=== PATIENT | male | born 1950 | race Caucasian/White ===

== ENCOUNTER 2020-12-24 16:50 | Emergency (ER) | payer MEDICARE, OTHER ==
[~2020-12-24] VITALS: Ht 167.6 cm; Wt 68.0 kg
--- NOTE | 2020-12-24 17:55 | NUR ---
DR GARCIA AT BEDSIDE FOR EVAL.
[2020-12-24] MEDS ORDERED: ALBUTEROL FS 2.5 MG/3 ML VIAL.NEB CONTNEB ONE (18:00)
[2020-12-24] MEDS ORDERED: methylPREDNISolone SOD SUCC 125 MG/2ML VIAL IV ONE (18:00)
[2020-12-24] MEDS ORDERED: IPRATROPIUM NEB FS 0.5 MG/2.5 ML AMPUL.NEB NEB ONE (18:00)
[2020-12-24] MEDS ORDERED: methylPREDNISolone SOD SUCC 125 MG/2ML VIAL ONE (18:04)
[2020-12-24] MEDS ORDERED: IPRATROPIUM NEB FS 0.5 MG/2.5 ML AMPUL.NEB ONE (18:06)
[2020-12-24] MEDS ORDERED: ALBUTEROL FS 2.5 MG/3 ML VIAL.NEB ONE (18:06)
--- NOTE | 2020-12-24 18:10 | NUR ---
RT AT BEDSIDE FOR BREATHING TREATMENT.
--- NOTE | 2020-12-24 18:19 | NUR ---
BIBRA60 FRM USP C/O SOB, +WHEEZING X 1 HOUR. RAN OUT OUT ASTHMA MEDS WAS GIVEN ALBUTEROL TREATMENT MANAGEMENT ENGINEER. PT AAOX4, DENIES CP, DIZZINESS, N/V AT THIS TIME. PT SEEN & EVAL'D BY DR. GARCIA. MEDICATED ORDERED, PT LIAM WELL. WILL CONT TO MONITOR.
[2020-12-24 18:21] LABS: BASOPHILS % (AUTO) 0.5 % (0.0-2.0); EOSINOPHILS % (AUTO) 12.2 % (0.0-6.0); HEMATOCRIT 34 % (39-51); HEMOGLOBIN 11.5 g/dL (13.5-17.5); LYMPHOCYTES # (AUTO) 1.7 K/uL (0.8-4.8); LYMPHOCYTES % (AUTO) 30.8 % (20.0-44.0); MEAN CORPUSCULAR HGB CONC 34 g/dl (31.0-36.0); MEAN CORPUSCULAR VOLUME 83 fL (80-96); MONOCYTES # (AUTO) 0.6 K/uL (0.1-1.30); NEUTROPHILS # (AUTO) 2.5 K/uL (1.8-8.9); NEUTROPHILS % (AUTO) 46.5 % (43.0-81.0); PLATELET COUNT (AUTO) 208 K/uL (150-450); RED BLOOD CELL COUNT(AUTO) 4.13 MIL/uL (4.5-6.0); WHITE BLOOD COUNT (AUTO) 5.5 K/uL (4.3-11.0)
[2020-12-24 18:31] LABS: CALCIUM, SERUM 8.1 mg/dL (8.5-10.1); CARBON DIOXIDE 24 mmol/L (21-32); CHLORIDE 100 mmol/L (98-107); GLUCOSE 114 mg/dL (74-106); POTASSIUM 3.5 mmol/L (3.5-5.1); SODIUM SERUM 135 mmol/L (136-145); UREA NITROGEN, BLOOD 14 mg/dL (7-18)
[2020-12-24] MEDS ORDERED: PRED20TA PO (18:43)
[2020-12-24] MEDS ORDERED: ALBU18HF2 INH (18:43)
[2020-12-24 19:13] VITALS: BP 115/76
--- NOTE | 2020-12-24 19:13 | NUR ---
Patient discharged to home in stable condition. Written and verbal after care instructions given. Patient verbalizes understanding of instruction.IV removed. Catheter intact and site benign. Pressure and 4x4 applied to site. No bleeding noted.
== END 2020-12-24 19:14 | disposition home or self-care (01) ==
LOC: ER 17:56
DX: J44.1 Chronic obstructive pulmonary disease with (acute) exacerbation (principal); Z59.0 Homelessness; Z79.899 Other long term (current) drug therapy
CPT/HCPCS: 36415; 71045; 80048; 83880; 84484; 85025; 93005; 94644; 96374; 99285; J2930

== ENCOUNTER 2021-06-28 04:40 | Inpatient (IN) | payer MEDICARE, OTHER ==
[~2021-06-28] VITALS: Ht 167.6 cm; Wt 67.6 kg
[~2021-06-28 04:40] MED LIST: ALBU18HF2 INH; PRED20TA PO
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
[2021-06-28] MEDS ORDERED: ALBUTEROL FS 2.5 MG/3 ML VIAL.NEB NEB ONE (05:00)
[2021-06-28] MEDS ORDERED: methylPREDNISolone SOD SUCC 125 MG/2ML VIAL IV ONE (05:00)
[2021-06-28] MEDS ORDERED: IPRATROPIUM NEB FS 0.5 MG/2.5 ML AMPUL.NEB NEB ONE (05:00)
[2021-06-28] MEDS ORDERED: methylPREDNISolone SOD SUCC 125 MG/2ML VIAL ONE (05:01)
--- NOTE | 2021-06-28 05:10 | NUR ---
20G IV LINE ESTABLISHED AT . PATENT AND INTACT. BLOOD DRAWN AND SENT TO LAB.
[2021-06-28] MEDS ORDERED: ALBUTEROL FS 2.5 MG/3 ML VIAL.NEB ONE ×3 (05:11→20:04)
[2021-06-28] MEDS ORDERED: IPRATROPIUM NEB FS 0.5 MG/2.5 ML AMPUL.NEB ONE ×3 (05:11→20:04)
[2021-06-28 05:24] LABS: BASOPHILS % (AUTO) 0.5 % (0.0-2.0); EOSINOPHILS % (AUTO) 6.1 % (0.0-6.0); HEMATOCRIT 36 % (39-51); HEMOGLOBIN 12.1 g/dL (13.5-17.5); LYMPHOCYTES # (AUTO) 1.3 K/uL (0.8-4.8); LYMPHOCYTES % (AUTO) 39.5 % (20.0-44.0); MEAN CORPUSCULAR HGB CONC 34 g/dl (31.0-36.0); MEAN CORPUSCULAR VOLUME 83 fL (80-96); MONOCYTES # (AUTO) 0.4 K/uL (0.1-1.30); MONOCYTES % (AUTO) 11.4 % (2.0-12.0); NEUTROPHILS # (AUTO) 1.4 K/uL (1.8-8.9); NEUTROPHILS % (AUTO) 42.5 % (43.0-81.0); PLATELET COUNT (AUTO) 281 K/uL (150-450); RED BLOOD CELL COUNT(AUTO) 4.32 MIL/uL (4.5-6.0); WHITE BLOOD COUNT (AUTO) 3.3 K/uL (4.3-11.0)
--- NOTE | 2021-06-28 05:38 | NUR ---
MRSA SWAB COLLECTED AND SENT TO LAB. PATIENT'S BELONGINGS LIST DONE.
[2021-06-28 05:39] LABS: CALCIUM, SERUM 8.4 mg/dL (8.5-10.1); CARBON DIOXIDE 27 mmol/L (21-32); CHLORIDE 97 mmol/L (98-107); CREATININE 0.7 mg/dL (0.6-1.3); GLUCOSE 102 mg/dL (74-106); POTASSIUM 3.4 mmol/L (3.5-5.1); SODIUM SERUM 130 mmol/L (136-145); UREA NITROGEN, BLOOD 9 mg/dL (7-18)
--- NOTE | 2021-06-28 05:42 | NUR ---
COVID ANTIGEN SWAB COLLECTED AND SENT TO LAB
--- NOTE | 2021-06-28 06:00 | NUR ---
MOVE SHEET SUBMITTED
--- NOTE | 2021-06-28 06:04 | NUR ---
WATCH REPAIRER AT PT'S BEDSIDE
--- NOTE | 2021-06-28 06:05 | NUR ---
EPIC PANEL PAGED
--- NOTE | 2021-06-28 06:54 | NUR ---
BRANDAN PAGED FOR IMAGE READ
--- NOTE | 2021-06-28 07:13 | NUR ---
EPIC PANEL PAGED
--- NOTE | 2021-06-28 07:15 | NUR ---
COVID PCR SWAB DONE AND SENT TO LAB
--- NOTE | 2021-06-28 07:21 | NUR ---
DR. RIVERA SPEAKING TO DR. IRIZARRY VIA PHONE CALL
[2021-06-28] MEDS ORDERED: POTASSIUM CHLORIDE 20 MEQ TAB.PRT.SR PO ONE ×2 (07:44→08:00)
[2021-06-28] MEDS ORDERED: ALBU18HF2 IH (07:58)
[2021-06-28] MEDS ORDERED: BUDE10.27 INH (07:58)
[2021-06-28] MEDS: IPRATROPIUM NEB FS 0.5 MG/2.5 ML AMPUL.NEB NEB SCH ×4 (11:30→23:47)
[2021-06-28] MEDS: ALBUTEROL HALF STRENGTH 1.25 MG/3 ML VIAL.NEB NEB SCH ×4 (11:30→23:47)
[2021-06-28] MEDS ORDERED: LEVOFLOXACIN (250MG) 250 MG TABLET ONE (11:35)
[2021-06-28] MEDS ORDERED: methylPREDNISolone SOD SUCC 40 MG/ML VIAL ONE (11:35)
[2021-06-28] MEDS ORDERED: ENOXAPARIN SODIUM 40 MG/0.4 ML DISP.SYRIN SQ ONE (11:35)
[2021-06-28] MEDS: ENOXAPARIN SODIUM 40 MG/0.4 ML DISP.SYRIN SQ SCH (12:00)
[2021-06-28] MEDS: LEVOFLOXACIN (250MG) 250 MG TABLET PO SCH (12:00)
--- NOTE | 2021-06-28 12:08 | NUR ---
Note himanshu in [facility] - 06/28/21 at 1209 by SAEID PT LAYING IN BED, WATCHING VIDEOS USING HER PHONE. WILL CONTINUE TO MONITOR.
--- NOTE | 2021-06-28 12:09 | NUR ---
PT LAYING IN BED, ADDITIONAL BLANKETS GIVEN, COMFORT MEASURES IN PLACE. WILL CONTINUE TO MONITOR.
[2021-06-28] MEDS: methylPREDNISolone SOD SUCC 125 MG/2ML VIAL IV SCH ×3 (12:34→21:24)
--- NOTE | 2021-06-28 13:00 | NUR ---
SOLUMEDROL ADMINISTERED 30 MINS AGO.
--- NOTE | 2021-06-28 15:28 | NUR ---
PT LAYING IN BED, BLANKETS GIVEN. WILL CONTINUE TO MONITOR.
--- NOTE | 2021-06-28 17:27 | NUR ---
PT EATING DINNER IN BED
--- NOTE | 2021-06-28 18:47 | NUR ---
BED 108.
--- NOTE | 2021-06-28 18:58 | NUR ---
REPORT WILL BE GIVEN AFTER SHIFT CHANGE
--- NOTE | 2021-06-28 19:38 | NUR ---
CALLED FLOOR, THEY SAID CALL BACK IN 10 MINS FOR REPORT
--- NOTE | 2021-06-28 19:50 | NUR ---
REPORT GIVEN TO TRACE STRONG
--- NOTE | 2021-06-28 20:08 | NUR ---
PT RECEIVING RESPIRATORY TREATMENT
[2021-06-28 20:30] VITALS: BP 148/69
--- NOTE | 2021-06-28 20:37 | NUR ---
PT TRANSFERRED TO TELE ROOM 108 FOLLOWING ACLS PROTOCOL WITH RN AND EMT. PT REMAINED STABLE THROUGHOUT TRANSFER.
--- NOTE | 2021-06-28 20:40 | NUR ---
RN NOTES RECEIVED CARE OF PATIENT FROM ER NURSE, PATIENT IS A/O X3, ABLE TO MAKE NEEDS KNOWN. PATIENT IS ON ROOM AIR, O2 SAT IS 98%, NO SOB NOTED, NO RESPIRATORY DISTRESS NOTED. NO SIGNIFICANT FINDINGS UPON INITIAL NURSING ASSESSMENTS. PATIENT AMBULATORY WITH ASSIST, URINAL IS AT BEDSIDE. PATIENT HAS IV ACCESS ON LFA G20, PATENT AND FLUSHES WELL. APPROPRIATE ISOLATION PRECAUTIONS IMPLEMENTED, SAFETY MEASURES IN PLACE. BED AT LOWEST POSITION, BED WHEELS LOCKED IN PLACE, SIDE RAILS UP X2, CALL LIGHT WITHIN REACH. WILL CONTINUE TO MONITOR PATIENT.
[2021-06-29] VITALS: BP 134/92
--- NOTE | 2021-06-29 01:00 | NUR ---
RN NOTES PATIENT WISHES TO BE PLACED DO NOT RESUSCITATE/DO NOT INTUBATE (DRN/DNI) FOR CODE STATUS. PATIENT IS A/O X4, ABLE TO MAKE OWN DECISIONS. PATIENT WAS EDUCATED ON SIGNIFICANCE OF CODE STATUS, PATIENT REMAINS WANTING TO BE PLACED UNDER DNR/DNI. PATIENT IS HOMELESS AND HAS NO CONTACTS THAT CAN BE CALLED REGARDING PATIENT'S CARE. DOCTOR TEACHER VOCAL CHRISTIANA KENDRICK MADE AWARE. CODE STATUS ORDERED.
[2021-06-29] MEDS: ALBUTEROL HALF STRENGTH 1.25 MG/3 ML VIAL.NEB NEB SCH ×3 (03:30→11:21)
[2021-06-29] MEDS: IPRATROPIUM NEB FS 0.5 MG/2.5 ML AMPUL.NEB NEB SCH ×3 (03:30→11:22)
[2021-06-29] MEDS: methylPREDNISolone SOD SUCC 125 MG/2ML VIAL IV SCH ×2 (05:08→13:07)
--- NOTE | 2021-06-29 07:30 | NUR ---
MS RN OPENING NOTES RECEIVED PATIENT ON BED AWAKE AND A/O X4. ON ROOM AIR TOLERATING WELL . NO SOB NOTED. NOT IN DISTRESS. WITH NO COMPLAINTS OF PAIN OR DISCOMFORT AT THIS TIME. WITH IV ACCESS AT LEFT FOREARM G20 SALINE LOCKED, PATENT AND INTACT. SAFETY MEASURES IN PLACED. CALL LIGHT WITHIN REACH. BED ON LOWEST LOCKED POSITION, SIDE RAILS UP X2. WILL CONTINUE TO MONITOR.
[2021-06-29 08:00] VITALS: BP 141/82
[2021-06-29] MEDS: ENOXAPARIN SODIUM 40 MG/0.4 ML DISP.SYRIN SQ SCH (09:00)
[2021-06-29] MEDS: LEVOFLOXACIN (250MG) 250 MG TABLET PO SCH (10:10)
--- NOTE | 2021-06-29 15:00 | NUR ---
MS CONE SEWER NOTES PATIENT WAS SEEN BY DR. VALADEZ AND ORDERED PATIENT FOR DISCHARGE TO HOME. DISCHARGE INSTRUCTION AND PRESCRIPTION PROVIDED TO PATIENT. BELONGINGS LIST AND DISCHARGE FORM SIGNED BY PATIENT. IV LINE AND NAME WRIST BAND REMOVED. ACCOMPANIED PATIENT TO THE [facility] AND LEFT IN STABLE CONDITION. MD AND CHARGE NURSE ARE AWARE OF THE DISCHARGE.
--- NOTE | 2021-06-30 11:34 | NUR ---
SW received consult regarding homelessness. Pt. was discharged from hospital. SW was not able to meet with pt.
== END 2021-06-29 15:43 | disposition home or self-care (01) | DRG 202 ==
LOC: ER 04:42 → TRANSITION 07:29 → TELE1 18:55 → MEDSG1 06-29 01:22
PROVIDERS: ADMIT Nurse Practitioner Acute Care
DX: J45.901 Unspecified asthma with (acute) exacerbation (principal); E87.1 Hypo-osmolality and hyponatremia; Z20.822 Contact with and (suspected) exposure to COVID-19; D72.819 Decreased white blood cell count, unspecified; Z87.891 Personal history of nicotine dependence; Z59.00 Homelessness unspecified; E87.6 Hypokalemia
CPT/HCPCS: 36415; 71045-TC; 80048-TC; 84484-TC; 85025-TC; 87081-TC; 94799-TC; C9803; G0378; J1650; J2920; J2930; J7120; U0003